=== PATIENT | male | born 1995 | race Two or more races ===

== ENCOUNTER 2020-11-07 03:08 | Emergency (ER) | payer SELFPAY ==
[~2020-11-07] VITALS: Ht 185.4 cm; Wt 122.7 kg
[2020-11-07] MEDS ORDERED: LIDOCAINE 2% Multi-Dose 20 ML VIAL. IJ ONE (04:30)
--- NOTE | 2020-11-07 05:01 | ED.ADGEN ---
Past Medical History Past Medical History: Other Additional Past Medical Histor: INGROWN TOE NAILS Past Surgical History: Tonsillectomy Smoking Status: Never Smoker Alcohol Use: None Drug Use: None General Adult EDM: Chief Complaint: LACERATION/AVULSION HPI: HPI: Patient is 25-year-old male who presents to the emergency room complaining of a laceration to his palm. He states that 7 hours ago he was trying to get hamburger patties apart with a knife and it went straight through the maegan and into his hand. He states the bleeding has been controlled. He washed it out right after it occurred. He states that he was going to bed this evening and realized that the wound was gaping and thought maybe he needed stitches. He denies any other complaints. Review of Systems: Review of Systems: Complete ROS is negative unless otherwise documented in HPI Current Medications: Current Medications Medications (Trade) Dose Ordered Sig/Dafne Start Time Stop Time Status Last Admin Dose Admin Lidocaine HCl (Lidocaine 2% 20ml Vial) 20 ml 1X ONCE 11/07/20 04:30 11/07/20 04:31 DC 11/07/20 04:50 20 ML Allergies: Allergies: Allergies Coded Allergies Type Severity Reaction Last Updated Verified Penicillins Allergy Intermediate 11/07/20 No amoxicillin Allergy Intermediate 11/07/20 Yes Physical Exam: PE: General: Awake, alert, NAD. Well Nourished, well hydrated. Cooperative HEENT: Atraumatic, EOMI, PERRL, airway patent, moist oral mucosa Neck: Supple, trachea midline Respiratory: CTA bilaterally, normal effort, no wheezing/crackles CV: RRR, no murmur, cap refill <2 GI: Soft, nondistended, nontender, no masses MSK: Hand: Intact range of motion, intact sensation, less than 2-second capillary refill and all 5 digits Skin: Warm, dry, 4 cm laceration to right palm Neuro: A&O x3, speech NL, sensory and motor grossly intact, no focal deficits Psych: Normal affect, normal mood, not suicidal or homicidal Current Patient Data: Vital Signs: Vital Signs Date Time Temp Pulse Resp B/P (MAP) Pulse Ox O2 Delivery O2 Flow Rate FiO2 11/07/20 05:30 73 20 155/83 (107) 100 Room Air 11/07/20 03:10 97.4 97.4 EKG: EKG: [] Heart Score: C/O Chest Pain: N/A Risk Factors: Risk Factors: DM, Current or recent (<one month) smoker, HTN, HLP, family history of CAD, obesity. Risk Scores: Score 0 - 3: 2.5% MACE over next 6 weeks - Discharge Home Score 4 - 6: 20.3% MACE over next 6 weeks - Admit for Clinical Observation Score 7 - 10: 72.7% MACE over next 6 weeks - Early Invasive Strategies Radiology/Procedures: Radiology/Procedures: [] Course & Med Decision Making: Course & Med Decision Making Pertinent Labs and Imaging studies reviewed. (See chart for details) Patient presents to the emergency room with a simple laceration. Wound was cleaned. Is been less than 8 hours since injury. Tetanus is up-to-date. Wound was cleaned and closed. He is neurovascularly intact. Patient's test results and vitals while in the ED were fully reviewed and discussed with the patient. Patient is stable and at this time does not need admission to the hospital. We have discussed strict return precautions and the importance of following up with their Primary Care Physician. Patient stated understanding and was given an opportunity to ask any questions. Patient is in agreement with plan. Dragon Disclaimer: Dragon Disclaimer: This electronic medical record was generated, in whole or in part, using a voice recognition dictation system. PROCEDURE Procedure Laceration Repair Performed by: Pool Lopez MD Consent: obtained verbally from patient. Risks and benefits were discussed prior to consent Time out performed prior to procedure Location: Right palm Length: 3 cm Foreign bodies: No foreign bodies Tendon involvement: none Neurovascularly intact Local anesthetic: lidocaine with epinephrine Anesthetic total: 3 ml Patient sedated: no Preparation: Patient was prepped and draped in usual sterile fashion. Wound was cleaned extensively with water Amount of clean: Standard Deep stitches: no Skin closure: 3-0 etholon Number of sutures:3 Technique: simple interrupted Approximation: closed Approximation difficulty: Simple Patient tolerated procedure well Departure Departure Impression: Primary Impression: Laceration of palm without complication Disposition: HOME / SELF CARE / HOMELESS Condition: STABLE Referrals: NON,STAFF (PCP) Patient Instructions: Laceration Care, Adult Additional Instructions: Sutures to be removed in 7-10 days POOL LOPEZ MD Nov 07, 2020 05:01
[2020-11-07 05:30] VITALS: BP 155/83
== END 2020-11-07 05:30 | disposition home or self-care (01) ==
LOC: ER 03:08
DX: S61.411A Laceration without foreign body of right hand, initial encounter (principal); Z88.0 Allergy status to penicillin; Z88.1 Allergy status to other antibiotic agents; W26.0XXA Contact with knife, initial encounter; Y93.89 Activity, other specified; Y92.89 Other specified places as the place of occurrence of the external cause; Y99.8 Other external cause status
CPT/HCPCS: 12002; 99282